=== PATIENT | male | born 1930 | race Caucasian/White ===

== ENCOUNTER 2017-02-21 22:58 | Inpatient (IN) | payer MEDICARE, OTHER ==
--- NOTE | ~2017-02-21 | CN ---
Consultation Report [address] [place]. [address] NAME: WILLIAN NEAL : 30 STATUS : DIS IN PAT#: [id number] AGE: 86 ADM/REG DATE : 02/22/17 MR#: [id number] REPORT SERV DATE: 02/26/17 DICTATED BY: MANNY ROMO DATE: 02/25/17 REPORT STATUS : Draft TRANSCRIBED BY: MODL DATE: 02/25/17 DATE OF CONSULTATION: 02/23/2017 CONSULT SERVICE: General Surgery. REASON FOR CONSULTATION: Cholelithiasis. HISTORY OF PRESENT ILLNESS: The patient is an 86-year-old male, who presented with dizziness, orthopnea, left side pain that is now resolved. He has slight dyspnea on exertion and nonproductive cough. He was tolerating regular diet as recently as yesterday. He has no nausea, vomiting, fevers, chills, change in bowel habits. He has no pain at this time. Imaging with ultrasound of the abdomen demonstrated mild gallbladder wall thickening and stones. He had a mild elevation of AST, ALT, and total bilirubin. At this point, General Surgery was consulted. He does not have a typical symptoms of biliary disease. PAST MEDICAL HISTORY: Coronary artery disease, hypertension, hyperlipidemia, hypercoagulability. PAST SURGICAL HISTORY: 1. PCI. 2. Pacemaker placement. SOCIAL HISTORY: No tobacco, alcohol, or illegal drug use. FAMILY HISTORY: Negative for heart disease. HOME MEDICATIONS AND ALLERGIES: Reviewed in the chart. REVIEW OF SYSTEMS: A 12-point review of systems was negative, except as per HPI. PHYSICAL EXAMINATION: VITAL SIGNS: Stable. Afebrile. GENERAL: No acute distress. HEENT: Normocephalic, atraumatic. Pupils are equal, round, and reactive to light. Extraocular movements intact. Moist mucous membranes. NECK: Trachea midline. CHEST: Clear to auscultation bilaterally. HEART: Regular rate and rhythm. ABDOMEN: Soft, nondistended, and nontender to palpation. No peritonitis or pain in any way. RECTAL: Deferred. GENITALIA: Deferred. EXTREMITIES: Moves all. NEURO: Grossly intact. Consultation Report [address] [place]. [address] NAME: WILLIAN ENAL : 30 STATUS : DIS IN PAT#: [id number] AGE: 86 ADM/REG DATE : 02/22/17 MR#: [id number] REPORT SERV DATE: 02/26/17 DICTATED BY: MANNY ROMO DATE: 02/25/17 REPORT STATUS : Draft TRANSCRIBED BY: BELINDA DATE: 02/25/17 LABORATORY DATA: CBC within normal limits. Creatinine of 2.2. ALT is 72, which was down from 115 and AST is 47, down from 132. His BNP was 1000. Total bilirubin range from 2.3 to 2.6, back down to 2.3. Direct bilirubin is 0.4 . Lipase 144. Troponin 0.12. ASSESSMENT: This patient is an 86-year-old male with acute kidney injury and likely volume overload with hepatic congestion and elevated liver enzymes and mildly thickened gallbladder wall. It is very unlikely it is cholecystitis. We would attempt and monitor him for improvement on medical management. DICTATED BY: Vinny Myles MD ND/BELINDA Manny Romo MD / [id number] CC: Dalton Rosario Jr, MD Ronald Jarl, M.D.
--- NOTE | ~2017-02-21 | HP ---
History And Physical [place] [id number] [facility] [place]. [address] NAME: WILLIAN NEAL : 30 STATUS : ADM Louise PAT#: [id number] AGE: 86 ADM/REG DATE : 02/21/17 MR#: [id number] REPORT SERV DATE: 02/22/17 DICTATED BY: JOSE LUIS TORRES DATE: 02/22/17 REPORT STATUS : Draft TRANSCRIBED BY: MODL DATE: 02/22/17 DATE OF ADMISSION: 02/21/2017 CHIEF COMPLAINT: An an 86-year-old male, presenting with dizziness, orthopnea, lower chest/upper abdomen pain. HISTORY OF PRESENT ILLNESS: The patient's history was obtained through an interview with the patient and son coupled with review of [facility] medical records. Unfortunately, the patient is a fairly poor historian and seems sometimes being confused about his own complaints and clinical course over the last week but as best as I can I was able to pull together what seems a fairly reliable history nonetheless. Around 02/16/2017, 02/17/2017, the patient began to develop some nausea, dizziness. He actually went to [facility] to have evaluation and had a laboratory evaluation that seemed to show no major abnormalities, and he was discharged and was considered stable condition. But ever since that time, he has felt worsening illness and debilitation. One of his main complaints has been left-sided pain. It seems to be described really at the base of his left lower lung at the lateral aspect. He describes it as a sharp pain, sometimes exacerbated by coughing, a steady persistent pain 5/10 to 6/10 severity. He has also had orthostatics symptoms at night and had to sleep" sitting straight up" or in a recliner which is not typical for him. He has had paroxysmal nocturnal dyspnea as he explains it. He has had increasing weakness and dizziness. He finally has gotten to the point where he has to hold onto the wall when he walks because he feels so unstable. He has felt confused. He has had diaphoretic spells. He has had a nonproductive cough, slight dyspnea on exertion. No palpitations. No fevers or chills. He does feel a bloating sensation in his abdomen but no noticed lower extremity edema. REVIEW OF SYSTEMS: Otherwise, a 14-point review of systems was obtained and is negative. PAST MEDICAL HISTORY: 1. Pacemaker for sick sinus syndrome but also ventricular tachycardia. 2. Atrial fibrillation. 3. Nephrolithiasis with history of hydronephrosis and lithotripsy. 4. Cholelithiasis. 5. Coronary artery disease with stent placement about 15 years ago. History And Physical [place] [address] [place]. [address] NAME: WILLIAN NEAL : 30 STATUS : ADM Louise PAT#: [id number] AGE: 86 ADM/REG DATE : 02/21/17 MR#: [id number] REPORT SERV DATE: 02/22/17 DICTATED BY: JOSE LUIS TORRES DATE: 02/22/17 REPORT STATUS : Draft TRANSCRIBED BY: BELINDA DATE: 02/22/17 6. Elevated cholesterol. 7. Colon polyps seen by Dr. Dominic Mathew. PAST SURGICAL HISTORY: 1. Pacemaker. 2. 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 ALLERGIES: NO KNOWN DRUG ALLERGIES. SOCIAL HISTORY: Quit smoking more than 10 years ago. Drinks alcohol socially. Lives in [place], [place], is , has supportive son at bedside. FAMILY HISTORY: Cancer. CURRENT MEDICATIONS: Include Lipitor 10 mg p.o. daily, metoprolol 25 mg p.o. b.i.d., and Xarelto 20 mg p.o. daily. PHYSICAL EXAMINATION: VITAL SIGNS: Temperature 97.8, pulse 85, blood pressure 134/75, respiratory rate 18, and O2 saturation 99% on room air. GENERAL: A pleasant, cooperative male. No evidence of distress at this time. His pain has actually subsided. HEENT: Pupils are equal, round, and reactive to light. No conjunctival pallor. No scleral icterus. Nares are patent. Oropharynx is clear of obstruction. Moist mucous membranes. NECK: Trachea midline. No thyromegaly. LYMPH: No cervical lymphadenopathy. No supraclavicular lymphadenopathy. RESPIRATORY: The patient has wet crackles and rales at the base of his lungs. No upper respiratory rhonchi. No wheezes. The patient has a labored respiratory effort even resting in the bed. CARDIOVASCULAR: Irregularly irregular. No murmurs, rubs, or gallops are appreciated. I do not appreciate any lower extremity edema at this time. ABDOMEN: Does seem to be distended by examination. No tympanic resonance on percussion. Nontender throughout. No hepatosplenomegaly. DERMATOLOGICAL: Warm and dry extremities. No pallor. No cyanosis. PSYCHIATRIC: Normal affect. Good mood. Alert and oriented x3. LABORATORY DATA: Troponin 0.42 with a repeat troponin of 0.31. I did check a troponin from 02/17/2017, and it was less than 0.02. Brain natriuretic peptide elevated at 799, lipase 21. AST 132, ALT 115, alkaline phosphatase 108, total bilirubin 2.3. White blood cell count 12.5, hemoglobin 16, hematocrit 50, platelets 245. Sodium 135, potassium 4.2, chloride 99, bicarb 26, BUN 21, creatinine 1.7 from baseline creatinine of about 1.1 to 1.3, glucose 159. Urinalysis shows no evidence of infection but 221 red blood cells and positive protein. STUDIES: 1. Chest x-ray by my own evaluation shows no acute cardiopulmonary process. 2. EKG by my own evaluation shows atrial fibrillation, no major abnormalities otherwise. History And Physical [address] [address] NAME: WILLIAN NEAL : 30 STATUS : ADM Louise PAT#: [id number] AGE: 86 ADM/REG DATE : 02/21/17 MR#: [id number] REPORT SERV DATE: 02/22/17 DICTATED BY: JOSE LUIS TORRES DATE: 02/22/17 REPORT STATUS : Draft TRANSCRIBED BY: BELINDA DATE: 02/22/[address] scan obtained from outlying facility showed cholelithiasis, bilateral uncomplicated nephrolithiasis, and benign prostatic hypertrophy changes. ASSESSMENT AND PLAN: 1. Elevated troponin. I suspect a non-ST elevation myocardial infarction. Continue Xarelto for now. Consult multi sensor operator Dr. Adams, add aspirin 81 mg. 2. Elevated brain natriuretic peptide with orthopnea and paroxysmal nocturnal dyspnea but I do not appreciate any signs of edema although he does feel as if his abdomen is quite bloated and distended from fluid. I would like to try IV Bumex, continue beta linden, and add an WINNIE inhibitor. Check an echocardiogram to define function. 3. Elevated liver enzymes. The patient does have cholelithiasis but no right upper quadrant abdominal pain. I questioned the possibility that his elevated liver enzymes are from hepatic congestion. I would like to check an ultrasound of the gallbladder but follow liver enzymes with therapeutic IV Bumex. 4. Acute kidney injury. We will monitor closely although at this time, the patient seems to be volume overloaded by his history, and elevated brain natriuretic peptide so therefore, we will place him on IV Bumex and monitor kidney function. 5. Leukocytosis. Monitor for fevers which he denies at this time. Check ESR, CRP, and procalcitonin. 6. Nephrolithiasis with hematuria. 7. Chronic atrial fibrillation, on beta linden and Xarelto. 8. Pacemaker. We will interrogate. KPL/MODL Jose Luis Torres M.D. / [id number] CC: Harjinder Dangelo M.D.
--- NOTE | ~2017-02-21 | CN ---
Consultation Report [place] [id number] [place]. [address] NAME: WILLIAN NEAL : 30 STATUS : ADM Louise PAT#: [id number] AGE: 86 ADM/REG DATE : 02/21/17 MR#: [id number] REPORT SERV DATE: 02/22/17 DICTATED BY: HAL ADAMS DATE: 02/22/17 REPORT STATUS : Draft TRANSCRIBED BY: MODL DATE: 02/22/17 DATE OF CONSULTATION: REASON FOR CONSULTATION: Willian Neal is an 86-year-old male, who enters with abdominal discomfort. CVD PHYSICIAN: Rojas Olea MD HISTORY OF PRESENT ILLNESS: Mr. Willian Neal is very poor historian, but according to his family over the last several days, he has been complaining of some abdominal discomfort and nausea. Apparently, no chest pain or chest discomfort was noted. REVIEW OF SYSTEMS: Again taken from the family is negative for PND, chest pain, chest discomfort, syncope, or palpitations. Rest appears to be negative. PAST MEDICAL HISTORY: 1. History of coronary disease, status post PCI. 2. Pacemaker placed. 3. Hypertension, longstanding. 4. Hyperlipidemia, on atorvastatin. 5. Anticoagulation on rivaroxaban. SOCIAL HISTORY: He has strong family support. He does not smoke. He does not drink. He is fairly inactive. FAMILY HISTORY: Negative for early heart disease. PHYSICAL EXAMINATION: VITAL SIGNS: Blood pressure is 152/71, pulse is 67. GENERAL: Resting comfortably, nutritional status appears adequate. EYES: PERRLA. LUNGS: No labored use of accessory muscles. Without rales or wheezes. COR: PMI is not displaced. No thrills or heaves. NL S1 and S2. No S3, murmur, click, or rub. PULSES: Carotids without bruits. ABD: +BS, nontender. EXT: No cyanosis, clubbing, or edema. SKIN: No petechiae. NEURO: Alert and oriented. Does not appear anxious or depressed. LABORATORY EVALUATION: Creatinine is 1.9. BNP is elevated at 1016. Troponin is stable at 0.3. ASSESSMENT: At this time, we will repeat troponin in the morning. I do not believe there is Consultation Report [place] [address] [place]. [address] NAME: WILLIAN NEAL : 30 STATUS : ADM Louise PAT#: [id number] AGE: 86 ADM/REG DATE : 02/21/17 MR#: [id number] REPORT SERV DATE: 02/22/17 DICTATED BY: HAL ADAMS DATE: 02/22/17 REPORT STATUS : Draft TRANSCRIBED BY: MODL DATE: 02/22/17 an active cardiac issue, however, at this time. We will diurese secondary to volume overload, but this is more likely secondary to renal insufficiency. We will continue to follow with you. ROCHELLE/BELINDA Hal Adams M.D. / [id number] CC: Harjinder Dangelo M.D.
--- NOTE | ~2017-02-21 | DS ---
Discharge Summary [facility] [address] [facility] [place]. [address] NAME: WILLIAN NEAL : 30 STATUS : DIS IN PAT#: [id number] AGE: 86 ADM/REG DATE : 02/22/17 MR#: [id number] REPORT SERV DATE: 02/25/17 DICTATED BY: JR. ROSARIO WILLIAM JOHN DATE: 02/24/17 REPORT STATUS : Draft TRANSCRIBED BY: BELINDA DATE: 02/24/17 ADMISSION DATE: 02/22/2017 DISCHARGE DATE: 02/24/2017 DISCHARGE DIAGNOSES: Include: 1. Abdominal pain. 2. Cholelithiasis. 3. Acute kidney injury with chronic kidney disease, baseline creatinine about 1.3. 4. Chronic atrial fibrillation. 5. Elevated troponin, thought to be due to demand ischemia by Cardiology. 6. 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 OPERATIONS/PROCEDURES AND TREATMENTS: Include: 1. Chest x-ray done 02/11/2017, which showed no acute cardiopulmonary abnormality. 2. Abdominal ultrasound done 02/22/2017, which showed cholelithiasis in spite prominence of gallbladder wall thickness without evidence of biliary ductal dilation. There was small left renal cyst and inadequate visualization of the pancreas and aorta. 3. Echocardiogram done 02/22/2017, which showed borderline left ventricular systolic function of 50% with anteroseptal akinesis and right ventricular systolic function intact. Left and right atria were dilated. There was [id number] tricuspid regurgitation. DISCHARGE MEDICATIONS: Include: 1. Aspirin 81 mg orally daily. 2. Lipitor 10 mg orally daily. 3. Famotidine 20 mg orally daily. 4. Metoprolol 25 mg orally twice a day. 5. Ramipril 2.5 mg orally daily. 6. Xarelto 15 mg orally daily. HOSPITAL COURSE: The patient is an 86-year-old male, who presented to the emergency room on 02/22/2017 with complaint of dizziness, orthopnea, and lower and upper abdominal pain. The patient is a poor historian, but approximately one week prior, he developed nausea and dizziness, went to [facility] emergency room, where he was evaluated. Lab analysis showed no major abnormality. Since that time, he has had worsening illness with debilitation. He complained of left-sided pain, left lower costal margin area; also complained of orthostatic symptoms at night, had to sleep "sitting straight up" with paroxysmal nocturnal dyspnea. He had increased weakness and dizziness and was confused. On initial exam, his temperature was 97.8, heart rate 85, blood pressure 134/75, respiratory rate of 18, saturation 99% on room air. He had crackles at the bases of his lungs without upper rhonchi. Cardiovascular with an irregularly irregular rhythm without murmur, gallop, or rub. Abdominal exam was unremarkable overall. Lab analysis was significant for a troponin of 0.42 with a repeat of 0.31. BNP was 799. Bilirubin was 2.3. Urinalysis was without pyuria. Chest x-ray as detailed above. The patient was admitted to the hospital. Regarding the elevated troponin, the patient was Discharge Summary [address] [place]. [address] NAME: WILLIAN NEAL : 30 STATUS : DIS IN PAT#: [id number] AGE: 86 ADM/REG DATE : 02/22/17 MR#: [id number] REPORT SERV DATE: 02/25/17 DICTATED BY: JR. ROSARIO WILLIAM JOHN DATE: 02/24/17 REPORT STATUS : Draft TRANSCRIBED BY: BELINDA DATE: 02/24/17 seen and evaluated by Cardiology, had an echocardiogram, which is detailed above. Cardiology essentially felt this was likely demand ischemia and favored a delayed workup. His medications were optimized. It is recommended that he be back on Xarelto, which he had stopped with a renally adjusted dose of 15 mg daily. Regarding the patient's [id number] kidney disease, his BUN and creatinine at discharge were 32 and 2. This was consistent throughout the hospitalization. Most recent records I have are of approximately 12 months prior with a creatinine at that time of 1.3. I discussed this with the patient. He desired no further renal workup and wants to be discharged and follow up with Dr. Puga. Regarding the patient's chronic atrial fibrillation, please see above discussion. Regarding the hyperbilirubinemia, the patient had an abdominal ultrasound, which is detailed above. He was seen and evaluated by General Surgery and felt this was not biliary disease at this time. It is suggested he likely has Gilbert syndrome. Given the patient's desire for discharge, we will discharge him home. He will follow up with Dr. Puga with BMP in one week. FOLLOWUP ISSUES: 1. Consider follow up with Cardiology. 2. Resuming Xarelto which the patient had stopped on his own. 3. Workup of declining kidney function in the last year. DISCHARGE DIET: Regular. ACTIVITY: As tolerated. For discharge exam and laboratory, please see daily progress note. This discharge took 32 minutes for patient encounter, coordination of care, and documentation. DICTATED BY: Dalton Rosario Jr, MD WJF/BELINDA Dalton Rosario Jr, MD / [id number] CC: Dalton Rosario Jr, MD Ronald Jarl, M.D.
[~2017-02-21 22:58] MED LIST: ASAB PO; CELEBREX2 PO; LIPITOR10 PO; LOP25 PO; PRILOSEC10 MG PO; VITAMIN B-121000 MC1 SL; VITAMIN D1000 UNI1 PO; VITD PO; XARELTO20 MG PO
[2017-02-22 00:14] LABS: CALCIUM, SERUM 8.7 MG/DL (8.5-10.4); CHLORIDE, SERUM 105 MMOL/L (96-112); CO2 (CARBON DIOXIDE) 26 MMOL/L (24-34); CREATININE 1.72 MG/DL (0.70-1.30); GFR AFRICAN AMERICAN 41 ML/MIN (>=60); GFR NON AFRICAN AMERICAN 35 ML/MIN (>=60); SGOT(AST) 132 U/L (5-40); SGPT(ALT) 115 U/L (5-65); SODIUM, SERUM 137 MMOL/L (135-148); TOTAL PROTEIN 6.8 G/DL (6.0-8.5)
[2017-02-22 00:15] LABS: A/G RATIO 1.1 (0.7-1.9); ALBUMIN 3.5 G/DL (3.5-5.0); ALKALINE PHOSPHATASE 96 U/L (45-117); BUN (BLOOD UREA NITROGEN) 22 MG/DL (6-23); CK-MB 2.8 NG/ML; CPK 45 U/L (0-200); GLOBULIN 3.3 G/DL (2.5-4.1); GLUCOSE, SERUM 119 MG/DL (60-99); POTASSIUM, SERUM 4.2 MMOL/L (3.5-5.3); TOTAL BILIRUBIN 2.3 MG/DL (0-1.2); TROPONIN I 0.31 NG/ML (<0.05)
[2017-02-22] MEDS ORDERED: V2 PO (02:17)
[2017-02-22] MEDS ORDERED: XARELTO20 MG PO (02:29)
[2017-02-22 06:30] LABS: BASOPHILS 0.4 %; BASOPHILS ABSOLUTE 0.04 10/3/uL (0.0-0.16); EOSINOPHILS 0 %; HEMATOCRIT 44.3 % (40.0-51.0); HEMOGLOBIN 15.2 g/dL (13.6-17.8); IMMATURE GRANULOCYTES 0.1 %; IMMATURE GRANULOCYTES ABSOLUTE 0.01 10/3/uL (0.0-0.11); LYMPHOCYTES 8.1 %; LYMPHOCYTES ABSOLUTE 0.84 10/3/uL (0.67-4.30); MEAN CORPUSCULAR HEMOGLOB 32.5 pg (26.0-34.0); MEAN CORPUSCULAR VOLUME 94.7 fL (80-100); MONOCYTES 11.8 %; MONOCYTES ABSOLUTE 1.23 10/3/uL (0.21-1.20); NEUTROPHILS 79.6 %; NEUTROPHILS ABSOLUTE 8.29 10/3/uL (2.02-8.40); PLATELET COUNT 188 10/3/uL (150-400); RBC DISTRIBUTION WIDTH 13.1 % (12.0-16.0); RED CELL COUNT 4.68 10/6/uL (4.7-6.1); WHITE BLOOD CELLS 10.4 10/3/uL (4.5-10.5)
[2017-02-22 06:31] LABS: MANUAL DIFF NO %; MEAN CORPUS HGB CONC 34.3 g/dL (32.0-36.0)
[2017-02-22 06:39] LABS: INTERNATIONAL NORMAL RATI 1.9 UNITS (-)
[2017-02-22 06:52] LABS: ALBUMIN 3.5 G/DL (3.5-5.0); ALKALINE PHOSPHATASE 97 U/L (45-117); BUN (BLOOD UREA NITROGEN) 23 MG/DL (6-23); CALCIUM, SERUM 8.8 MG/DL (8.5-10.4); CHLORIDE, SERUM 104 MMOL/L (96-112); CO2 (CARBON DIOXIDE) 28 MMOL/L (24-34); CREATININE 1.92 MG/DL (0.70-1.30); GFR AFRICAN AMERICAN 36 ML/MIN (>=60); GFR NON AFRICAN AMERICAN 31 ML/MIN (>=60); GLOBULIN 3.4 G/DL (2.5-4.1); GLUCOSE, SERUM 118 MG/DL (60-99); POTASSIUM, SERUM 4.4 MMOL/L (3.5-5.3); SGOT(AST) 103 U/L (5-40); SGPT(ALT) 105 U/L (5-65); SODIUM, SERUM 140 MMOL/L (135-148); TOTAL BILIRUBIN 2.6 MG/DL (0-1.2); TOTAL PROTEIN 6.9 G/DL (6.0-8.5)
[2017-02-22 06:53] LABS: PROTIME (NOT ORD) 21.4 SEC (12.0-14.5); TROPONIN I 0.28 NG/ML (<0.05); ULTRASENSITIVE TSH 0.556 MCIU/ML (0.358-3.740)
[2017-02-22 07:06] LABS: C-REACTIVE PROTEIN 34.4 MG/L (<8.0)
[2017-02-22 07:38] LABS: SED RATE 8 MM/HR (0-15)
[2017-02-22 11:29] LABS: DIRECT BILIRUBIN 0.4 MG/DL (0.0-0.4)
[2017-02-23 03:48] LABS: BASOPHILS 0.1 %; BASOPHILS ABSOLUTE 0.01 10/3/uL (0.0-0.16); EOSINOPHILS 0.2 %; EOSINOPHILS ABSOLUTE 0.02 10/3/uL (0.0-0.53); HEMATOCRIT 45.8 % (40.0-51.0); HEMOGLOBIN 15.4 g/dL (13.6-17.8); IMMATURE GRANULOCYTES 0.1 %; IMMATURE GRANULOCYTES ABSOLUTE 0.01 10/3/uL (0.0-0.11); MEAN CORPUS HGB CONC 33.6 g/dL (32.0-36.0); MEAN CORPUSCULAR HEMOGLOB 31.9 pg (26.0-34.0); MEAN CORPUSCULAR VOLUME 94.8 fL (80-100); MEAN PLATELET VOLUME 12.4 fL (9.2-13.0); MONOCYTES 13.8 %; MONOCYTES ABSOLUTE 1.27 10/3/uL (0.21-1.20); NEUTROPHILS 73.8 %; NEUTROPHILS ABSOLUTE 6.78 10/3/uL (2.02-8.40); PLATELET COUNT 197 10/3/uL (150-400); RED CELL COUNT 4.83 10/6/uL (4.7-6.1); WHITE BLOOD CELLS 9.2 10/3/uL (4.5-10.5)
[2017-02-23 03:52] LABS: MANUAL DIFF NO %
[2017-02-23 04:11] LABS: A/G RATIO 0.9 (0.7-1.9); ALBUMIN 3.3 G/DL (3.5-5.0); ALKALINE PHOSPHATASE 94 U/L (45-117); CALCIUM, SERUM 8.9 MG/DL (8.5-10.4); CHLORIDE, SERUM 100 MMOL/L (96-112); CO2 (CARBON DIOXIDE) 28 MMOL/L (24-34); CREATININE 2.22 MG/DL (0.70-1.30); GFR AFRICAN AMERICAN 30 ML/MIN (>=60); GFR NON AFRICAN AMERICAN 26 ML/MIN (>=60); GLOBULIN 3.6 G/DL (2.5-4.1); GLUCOSE, SERUM 95 MG/DL (60-99); POTASSIUM, SERUM 4.1 MMOL/L (3.5-5.3); SGOT(AST) 47 U/L (5-40); SGPT(ALT) 72 U/L (5-65); SODIUM, SERUM 137 MMOL/L (135-148); TOTAL BILIRUBIN 2.3 MG/DL (0-1.2); TOTAL PROTEIN 6.9 G/DL (6.0-8.5)
[2017-02-23 04:12] LABS: BUN (BLOOD UREA NITROGEN) 30 MG/DL (6-23); TROPONIN I 0.14 NG/ML (<0.05)
[2017-02-24 04:31] LABS: BUN (BLOOD UREA NITROGEN) 32 MG/DL (6-23); CALCIUM, SERUM 8.9 MG/DL (8.5-10.4); CHLORIDE, SERUM 103 MMOL/L (96-112); CO2 (CARBON DIOXIDE) 27 MMOL/L (24-34); CREATININE 1.96 MG/DL (0.70-1.30); GFR AFRICAN AMERICAN 35 ML/MIN (>=60); GFR NON AFRICAN AMERICAN 30 ML/MIN (>=60); GLUCOSE, SERUM 104 MG/DL (60-99); POTASSIUM, SERUM 3.7 MMOL/L (3.5-5.3); SODIUM, SERUM 137 MMOL/L (135-148)
[2017-02-24] MEDS ORDERED: ASAB PO (18:31)
[2017-02-24] MEDS ORDERED: ALTA2.5 (18:32)
[2017-02-24] MEDS ORDERED: PEP20 PO (18:33)
[2017-02-26 02:00] LABS: NAPA <0.6 ug/mL (6.0-20.0); PROCAINAMIDE <0.4 ug/mL (4.0-10.0)
== END 2017-02-24 19:15 | disposition home or self-care (01) | DRG 683 ==
LOC: 5NO 22:58
PROVIDERS: Family Medicine; Internal Medicine
DX: N17.9 Acute kidney failure, unspecified (principal); I24.8 Other forms of acute ischemic heart disease; I48.2 Chronic atrial fibrillation; R10.9 Unspecified abdominal pain; R31.9 Hematuria, unspecified; Z79.01 Long term (current) use of anticoagulants; N20.0 Calculus of kidney; I10 Essential (primary) hypertension; E78.5 Hyperlipidemia, unspecified; K80.20 Calculus of gallbladder without cholecystitis without obstruction; R09.82 Postnasal drip; Z95.0 Presence of cardiac pacemaker
CPT/HCPCS: 71010; 76700; 80048; 80053; 80192; 82248; 82550; 82553; 83690; 83735; 83880; 84145; 84443; 84484; 85025; 85610; 85652; 85730; 86140; 93005; 93288; 93306; A9270-GY